=== PATIENT | female | born 1950 | race Caucasian/White ===

== ENCOUNTER 2023-01-26 19:14 | Emergency (ER) | payer MEDICARE, OTHER ==
[~2023-01-26] VITALS: Ht 152.4 cm; Wt 84.4 kg
[~2023-01-26 19:14] MED LIST: ALBUTEROL2.5 MG/3 M INH; AMITRIPTYLINE H50 MG PO; ARNUITY ELLIPT50 MCG NAS; B-121000 MC2 PO; CALCIUM MAGNES1 EAC2 PO; COLCRYS0.6 MG PO; CYCLOBENZAPRINE10 MG PO; DELTASONE20 MG PO; DICLOFENAC SODI25 MG PO; DOK100 MG PO; ELIQUIS5 MG PO; FLECAINIDE ACET50 MG PO; GLUCOPHAGE500 MG PO; HYDRALAZINE HCL10 MG PO; IPRAT-ALBUT 0.5-3 ML INH; K-TAB ER20 MEQ PO; LACTULOSE10 GM/151 PO; LASIX20 MG PO; LEVAQUIN500 MG PO; LIDODERM1 EACH; METFORMIN HCL1000 MG PO; MONTELUKAST SOD10 MG PO; NEURONTIN300 MG PO; PERCOCET 5-3251 EACH PO; PROZAC20 MG PO; QVAR REDIHALE10.6 G1 INH; SIMVASTATIN10 MG PO; TENORMIN50 MG PO; TOPROL XL100 MG PO
--- OUTSIDE RECORDS SUMMARY | 2023-01-26 19:16 | XMS ---
PreManage Notification: REJI LARA Security Mail Inserter Events No recent Security Events currently on file CRITERIA MET - PDMP CARE PROVIDERS GERARD RODRIGUEZ Nurse Practitioner: Family Current PHONE: [phone] Care Guidelines exist for the following facilities: [facility] ( 07/06/2019 ) [place] VISIT COUNT (12 MO.) 1 MIHAI Stewart TOTAL 1 NOTE: Visits indicate total known visits. ED/UCC VISIT TRACKING (12 MO.) 01/26/2023 19:14 [facility] [place] TYPE: Emergency COMPLAINT: - CHEST PAIN INPATIENT VISIT TRACKING (12 MO.) No inpatient visits to display in this time frame [email or web address]
[2023-01-26 21:15] VITALS: BP 125/53
--- NOTE | 2023-01-27 17:43 | EKG ---
[facility] [address] [place] [address] Signed Atrial fibrillation with rapid ventricular rate ST \T\ T wave abnormality, consider lateral ischemia Abnormal ECG When compared with ECG of 26-JAN-2017 16:57, Atrial fibrillation has replaced Sinus rhythm ST now depressed in Inferior leads ST now depressed in Anterolateral leads T wave inversion now evident in Lateral leads Confirmed by SAMMY SAMANIEGO MD ([id number]) on 01/27/2023 5:42:48 PM Electronically Signed By: SAMMY SAMANIEGO MD 01/27/231742 PATIENT NAME: REJI LARA Electrocardiogram DATE OF : 52 PHYSICIAN: SAMMY SAMANIEGO MD REPORT #: [id number] REPORT IS CONFIDENTIAL AND NOT TO BE RELEASED WITHOUT AUTHORIZATION
--- NOTE | 2023-01-27 17:43 | EKG ---
[facility] [address] [facility] [address] [place] [address] Signed Normal sinus rhythm Normal ECG When compared with ECG of 26-JAN-2023 19:16, (Unconfirmed) Sinus rhythm has replaced Atrial fibrillation Vent. rate has decreased BY [address] no longer depressed in Inferior leads ST no longer depressed in Anterolateral leads T wave inversion no longer evident in Lateral leads Confirmed by SAMMY SAMANIEGO MD ([id number]) on 01/27/2023 5:43:43 PM Electronically Signed By: SAMMY SAMANIEGO MD 01/27/231742 PATIENT NAME: REJI LARA Electrocardiogram DATE OF : 52 PHYSICIAN: SAMMY SAMANIEGO MD REPORT #: [id number] REPORT IS CONFIDENTIAL AND NOT TO BE RELEASED WITHOUT AUTHORIZATION
== END 2023-01-26 21:15 | disposition home or self-care (01) ==
LOC: ED 19:14
DX: I48.92 Unspecified atrial flutter (principal); I10 Essential (primary) hypertension; J44.9 Chronic obstructive pulmonary disease, unspecified; I48.91 Unspecified atrial fibrillation; E66.9 Obesity, unspecified; Z79.01 Long term (current) use of anticoagulants; Z79.899 Other long term (current) drug therapy
CPT/HCPCS: 36415; 71045; 80053; 83735; 83880; 84484; 85025; 85610; 93005; 93010; A9270